=== PATIENT | male | born 1995 | race Caucasian/White ===

== ENCOUNTER → 2017-02-22 14:36 | Emergency (ER) | payer OTHER ==
[2017-02-22 14:47] VITALS: BP 154/106
[2017-02-22 15:41] LABS: Hematocrit 48 % (42-52); Hemoglobin 16.7 g/dl (14.0-18.0); Mean Corpuscular HGB Conc 35 g/dl (31-36); Mean Corpuscular Hemoglobin 30 pg (27-31); Mean Corpuscular Volume 86 fL (80-94); Mean Platelet Volume 7 um3 (7.4-10.4); Red Blood Count 5.56 10^6/ul (4.0-5.4); Red Cell Distribution Width 14 % (10.5-15); White Blood Count 8.2 10^3/ul (3.5-10.8)
[2017-02-22 15:57] LABS: ALT 13 U/L (7-52); AST 16 U/L (13-39); Albumin 5.2 g/dL (3.2-5.2); Alkaline Phosphatase 55 U/L (34-104); Anion Gap 9 mmol/L (2-11); BUN/Creatinine Ratio 15.5 (8-20); Blood Urea Nitrogen 17 mg/dL (6-24); CO2 Carbon Dioxide 23 mmol/L (22-32); Calcium 10.2 mg/dL (8.6-10.3); Chloride 106 mmol/L (101-111); EGFR African American 109.8 (>60); EGFR Non-African American 85.3 (>60); Globulin 2.8 g/dL (2-4); Glucose 99 mg/dL (70-100); Potassium 3.5 mmol/L (3.5-5.0); Sodium 138 mmol/L (133-145)
[2017-02-22 16:20] LABS: Acetaminophen < 15 mcg/mL; Alcohol < 10 mg/dL (<10); Salicylate < 2.50 mg/dL (<30)
[2017-02-22 16:35] LABS: TSH (Thyroid Stimulating Horm) 1.32 mcIU/mL (0.34-5.60)
[2017-02-22 17:26] LABS: Benzodiazepine Urine Screen None Detected (None Detect)
--- NOTE | 2017-02-22 20:54 | ED ---
Peggy Eyl Nilda, scribed for Yousif Sierra MD on 02/22/17 at 1512 . Psychiatric Complaint - HPI Summary HPI Summary: This patient is a 22 year old M presenting to [facility] with a chief complaint of depression. Per triage note, patient states Im scared I might get to the point of suicide. The patient rates pain 0/10 in severity. Symptoms aggravated and alleviated by nothing. Patient denies pain. Per nursing note, patient currently denies HI and SI. He is not on medication for his depression and has had minimal counseling. - History Of Current Complaint Chief Complaint: EDMentalHealth Time Seen by Provider: 02/22/17 14:58 Hx Obtained From: Patient, Medical Records Onset/Duration: Gradual Onset Timing: Constant Severity Currently: Mild Character: Depressed Aggravating Factor(s): Nothing Alleviating Factor(s): Nothing Has Suicidal: Denies: Thoughts Has Homicidal: Denies: Thoughts PMH/Surg Hx/FS Hx/Imm Hx Sensory History: Denies: Hx Legally Blind EENT History: Denies: Hx Deafness Infectious Disease History: No Infectious Disease History: Denies: Traveled Outside the [place] in Last 30 Days - Family History Known Family History: Positive: Hypertension, Diabetes, Other - dementia Review of Systems Positive: Other - negative pain Positive: Depressed, Other - negative HI and SI All Other Systems Reviewed And Are Negative: Yes Physical Exam Triage Information Reviewed: Yes Vital Signs On Initial Exam: Initial Vitals Temp Pulse Resp BP Pulse Ox 99.8 F 82 20 154/106 100 02/22/17 14:44 02/22/17 14:44 02/22/17 14:44 02/22/17 14:44 02/22/17 14:44 Vital Signs Reviewed: Yes Appearance: Positive: Well-Appearing, No Pain Distress Skin: Positive: Warm, Skin Color Reflects Adequate Perfusion, Dry Head/Face: Positive: Normal Head/Face Inspection Eyes: Positive: Normal ENT: Positive: Normal ENT inspection Neck: Positive: Supple, Nontender Respiratory/Lung Sounds: Positive: Clear to Auscultation, Breath Sounds Present Cardiovascular: Positive: RRR Abdomen Description: Positive: Nontender, Soft Bowel Sounds: Positive: Present Musculoskeletal: Positive: Normal Neurological: Positive: Normal Psychiatric: Positive: Normal, Affect/Mood Appropriate Diagnostics - Vital Signs Vital Signs Temp Pulse Resp BP Pulse Ox 02/22/17 14:44 99.8 F 82 20 154/106 100 - Laboratory Lab Results: Lab Results 02/22/17 02/22/17 02/22/17 Range/Units 14:55 15:30 15:30 WBC 8.2 (3.5-10.8) 10^3/ul RBC 5.56 H (4.0-5.4) 10^6/ul Hgb 16.7 (14.0-18.0) g/dl Hct 48 (42-52) % MCV 86 (80-94) fL MCH 30 (27-31) pg MCHC 35 (31-36) g/dl RDW 14 (10.5-15) % Plt Count 246 (150-450) 10^3/ul MPV 7 L (7.4-10.4) um3 Neut % (Auto) 65.4 (38-83) % Lymph % (Auto) 26.5 (25-47) % [place] % (Auto) 6.8 (1-9) % Eos % (Auto) 0.5 (0-6) % Baso % (Auto) 0.8 (0-2) % Absolute Neuts (auto) 5.4 (1.5-7.7) 10^3/ul Absolute Lymphs (auto) 2.2 (1.0-4.8) 10^3/ul Absolute Monos (auto) 0.6 (0-0.8) 10^3/ul Absolute Eos (auto) 0 (0-0.6) 10^3/ul Absolute Basos (auto) 0.1 (0-0.2) 10^3/ul Absolute Nucleated RBC 0.01 10^3/ul Nucleated RBC % 0.1 Sodium 138 (133-145) mmol/L Potassium 3.5 (3.5-5.0) mmol/L Chloride 106 (101-111) mmol/L Carbon Dioxide 23 (22-32) mmol/L Anion Gap 9 (2-11) mmol/L BUN 17 (6-24) mg/dL Creatinine 1.10 (0.67-1.17) mg/dL Est GFR ( Amer) 109.8 (>60) Est GFR (Non-Af Amer) 85.3 (>60) BUN/Creatinine Ratio 15.5 (8-20) Glucose 99 (70-100) mg/dL Calcium 10.2 (8.6-10.3) mg/dL Total Bilirubin 0.90 (0.2-1.0) mg/dL AST 16 (13-39) U/L ALT 13 (7-52) U/L Alkaline Phosphatase 55 (34-104) U/L Total Protein 8.0 (6.4-8.9) g/dL Albumin 5.2 (3.2-5.2) g/dL Globulin 2.8 (2-4) g/dL Albumin/Globulin Ratio 1.9 (1-3) TSH 1.32 (0.34-5.60) mcIU/mL Salicylates < 2.50 (<30) mg/dL Urine Opiates Screen None detected (None Detect) Acetaminophen < 15 mcg/mL Ur Barbiturates Screen None detected (None Detect) Ur Phencyclidine Scrn None detected (None Detect) Ur Amphetamines Screen None detected (None Detect) U Benzodiazepines Scrn None detected (None Detect) Urine Cocaine Screen None detected (None Detect) U Cannabinoids Screen None detected (None Detect) Serum Alcohol < 10 (<10) mg/dL Result Diagrams: 02/22/17 15:30 02/22/17 15:30 Lab Statement: Any lab studies that have been ordered have been reviewed, and results considered in the medical decision making process. Course/Dx - Course Course Of Treatment: Mr. Cano presented with depression and suicidal ideation. He has no plan at this time. He was medically cleared and is awaiting a MHE. - Differential Dx/Clinical Impression Provider Diagnosis: Depression with suicidal ideation Discharge - Discharge Plan Condition: Stable Disposition: OTHER Discharge Disposition Comment: s/o pending shift change Referrals: Non Staff,Doctor [Primary Care Provider] - The documentation as recorded by the Peggy narvaez Nilda accurately reflects the service I personally performed and the decisions made by me, Yousif Sierra MD.
== END ==
LOC: ED 14:36
DX: F32.9 Major depressive disorder, single episode, unspecified (principal); R45.851 Suicidal ideations
CPT/HCPCS: 36415; 80053; 80307; 80320; 80329; 84443; 85025; 99283; G0480